=== PATIENT | female | born 2000 | race Caucasian/White ===

== ENCOUNTER 2020-10-21 14:33 | Emergency (ER) | payer BC ==
[~2020-10-21 14:33] MED LIST: ONDANSETRON ODT8 MG PO
[2020-10-21 15:03] LABS: EOS # 0.1 (0.04-0.40); EOS % 0.8 % (1.0-5.0); HEMATOCRIT 37.5 % (37.0-47.0); HEMOGLOBIN 13.2 g/dL (12.5-16.0); LYMPH# 1.7 (1.50-4.00); MEAN CELL VOLUME 88 fl (78-100); MEAN CORPUSCULAR HEMOGLOBIN 31 pg (27-31); MEAN CORPUSCULAR HGB CONC 35 g/dL (33-37); MEAN PLATELET VOLUME 8.5 fl (7.4-10.4); MONO # 0.5 (0.20-0.80); NEU # 3.9 (1.40-6.50); PLATELET COUNT 244 K/mm3 (130-400); RED BLOOD COUNT 4.26 M/mm3 (4.10-5.30); RED CELL DISTRIBUTION WIDTH 12.7 % (11.5-14.5); WHITE BLOOD COUNT 6.2 K/mm3 (4.8-10.8)
[2020-10-21 15:11] LABS: URINE APPEARANCE CLOUDY; URINE COLOR YELLOW
[2020-10-21 15:12] LABS: PH-URINE 7.5 (5.0 - 8.0); URINE BILIRUBIN NEGATIVE (NEGATIVE); URINE BLOOD 50 ery/uL (NEGATIVE); URINE GLUCOSE NEGATIVE (NEGATIVE); URINE KETONE NEGATIVE (NEGATIVE); URINE LEUKOCYTE ESTERASE NEGATIVE (NEGATIVE); URINE NITRATE NEGATIVE (NEGATIVE); URINE PROTEIN(semi-quant) TRACE mg/dL (NEGATIVE); URINE UROBILINOGEN NORMAL (NORMAL); URINE WBC 0-1 /hpf (0-3)
[2020-10-21] MEDS ORDERED: ZOFRAN ODT4 MG PO (15:38)
[2020-10-21] MEDS ORDERED: PERCOCET 325 MG1 TA2 PO (15:38)
[2020-10-21 21:24] VITALS: BP 118/68
== END 2020-10-21 21:16 | disposition home or self-care (01) ==
LOC: ED 14:33
PROVIDERS: Family Medicine
DX: O26.891 Other specified pregnancy related conditions, first trimester (principal); R10.9 Unspecified abdominal pain; R31.9 Hematuria, unspecified; Z3A.12 12 weeks gestation of pregnancy; Z88.1 Allergy status to other antibiotic agents
CPT/HCPCS: J0595; J7030

== ENCOUNTER → 2020-10-23 | Outpatient (CLI) | payer BC ==
[2020-10-21 21:24] VITALS: BP 118/68
[~2020-10-23] MED LIST changes: +PERCOCET 325 MG1 TA2 PO; +ZOFRAN ODT4 MG PO
== END ==
LOC: RAD 07:15
DX: N13.2 Hydronephrosis with renal and ureteral calculous obstruction (principal)